=== PATIENT | female | born 1995 | race Caucasian/White ===

== ENCOUNTER 2021-04-17 15:55 | Emergency (ER) | payer OTHER, BC ==
[~2021-04-17] VITALS: Ht 157.5 cm; Wt 61.3 kg
[2021-04-17 16:17] VITALS: BP 132/76
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
[2021-04-17] MEDS ORDERED: CONTRAST GIVEN. MC PRN (17:00)
[2021-04-17] MEDS ORDERED: IOHEXOL 300 MG/ML 100ML VIAL. IV ONE (17:00)
--- NOTE | 2021-04-17 17:19 | RAD ---
EXAM: Cervical spine CT without contrast. HISTORY: Pain. TECHNIQUE: Computed tomographic images of the cervical spine were obtained without contrast. Multipla prema reformatting was performed. *One or more of the following individualized dose reduction techniques were utilized for this examina tion: 1. Automated exposure control. 2. Adjustment of the mA and/or kV according to patient size. 3. Use of iterative reconstruction technique. COMPARISON: None. FINDINGS: There is minimal anterolisthesis of C3 on C4 and C4 on C5. This is likely positional. There is no fracture. The disc spaces are preserved. The facet joints are intact. There is no suspicious l ytic or sclerotic osseous lesion. There is no stenosis. There is minimal biapical pleural parenchymal scarring. There is a slightly heterogeneous and relatively small thyroid. No discrete nodule is seen . IMPRESSION: No acute osseous finding. Electronically signed by: Riri Mcdonald MD (04/17/2021 5:16 PM) [id number]
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
[2021-04-17] MEDS ORDERED: CYCL7.5T21 PO (18:43)
== END 2021-04-17 18:53 | disposition home or self-care (01) ==
LOC: ER 15:55
DX: S70.02XA Contusion of left hip, initial encounter (principal); V49.59XA Passenger injured in collision with other motor vehicles in traffic accident, initial encounter; Y93.89 Activity, other specified; Y92.488 Other paved roadways as the place of occurrence of the external cause; Y99.8 Other external cause status
CPT/HCPCS: 72125; 73501; 74177; 99285; Q9967